=== PATIENT | female | born 1955 | race Caucasian/White ===

== ENCOUNTER 2020-07-11 15:07 | Emergency (ER) | payer OTHER ==
[~2020-07-11] VITALS: Ht 170.2 cm; Wt 76.2 kg
[2020-07-11 15:49] VITALS: BP 152/98
--- NOTE | 2020-07-11 16:29 | NUR ---
XRAY AT BEDSIDE
[2020-07-11] MEDS ORDERED: IBUP-1955 PO (17:56)
--- NOTE | 2020-07-11 18:15 | NUR ---
Patient discharged to home in stable condition. Written and verbal after care instructions given. Patient verbalizes understanding of instruction. Pt ambulatory with a steady gait
== END 2020-07-11 18:16 | disposition home or self-care (01) ==
LOC: ER 15:07
DX: S92.534A Nondisplaced fracture of distal phalanx of right lesser toe(s), initial encounter for closed fracture (principal); I10 Essential (primary) hypertension; Z98.890 Other specified postprocedural states; Y08.89XA Assault by other specified means, initial encounter; Y93.89 Activity, other specified; Y92.89 Other specified places as the place of occurrence of the external cause; Y99.8 Other external cause status
CPT/HCPCS: 73630-TC

== ENCOUNTER 2021-11-20 07:19 | Outpatient (CLI) | payer MEDICARE, OTHER ==
[~2021-11-20 07:19] MED LIST: IBUP-1955 PO
== END 2021-11-20 23:59 | disposition home or self-care (01) ==
LOC: LAB 07:19
PROVIDERS: ATTEND Orthopaedic Surgery
DX: Z01.812 Encounter for preprocedural laboratory examination (principal); Z20.822 Contact with and (suspected) exposure to COVID-19
CPT/HCPCS: U0003; C9803

== ENCOUNTER 2021-11-27 05:53 | Inpatient (IN) | payer OTHER, MEDICARE ==
[2021-11-27] VITALS (11 sets, daily range): BP systolic 95–152; BP diastolic 57–87
--- NOTE | 2021-11-27 06:54 | NUR ---
RN NOTE PT ARRIVED AT 0610 AM, AMBULATORY. A/O X 4, ABLE TO MAKE NEEDS KNOWN. ON ROOM AIR, WITH NO S/SX OF ACUTE RESPIRATORY DISTRESS NOTED UPON ASSESSMENT. NO SOB, NO PAIN PER PATIENT. SKIN IS INTACT. ALL SAFETY MEASURES IN PLACE: BED LOCKED IN LOW POSITION, BED ALARM ON. CALL LIGHT WITHIN REACH. INITIAL VS FOLLOW: TEMP 98.4 HR 108 RR 20 BP 142/87 O2 SAT 98%
[2021-11-27] MEDS ORDERED: ANESTHESIA TRAY IN PYXIS 1 EA TRAY MC ONE (06:55)
[2021-11-27] MEDS ORDERED: BUPIVACAINE 0.25% 75 MG/30 ML VIAL ONE (06:55)
--- NOTE | 2021-11-27 07:18 | NUR ---
RN OPENING NOTE PATIENT WAS PICKED UP BY OR NURSE AT 7:20AM
[2021-11-27] MEDS ORDERED: HYDROMORPHONE INJ 2 MG/ML DISP.SYRIN ONE ×2 (07:40→09:58)
[2021-11-27] MEDS ORDERED: MIDAZOLAM HCL 2 MG/2ML VIAL ONE (07:41)
[2021-11-27] MEDS ORDERED: ROCURONIUM BROMIDE 50 MG/5 ML ONE ×2 (07:41→09:07)
[2021-11-27] MEDS ORDERED: BUPIVACAINE 0.5 % PF 150 MG/30 ML VIAL ONE (07:41)
--- NOTE | 2021-11-27 12:55 | NUR ---
RN NOTES PT RETURNED TO UNIT VIA HER BED ACCOMPANIED BY O.RAzalia DOMINGUEZ S/P LEFT ANKLE REVISION AT NON- UNION REPAIR OF LATERAL MALLEOLUS BY DR DONG. PT IS AWAKE, A/O X4. NO C/O PAIN AT THIS TIME. DRESSING ON LEFT LOWER LEFT/FOOT C/D/I WRAPPED WITH RYANNE BANDAGE, PT ABLE TO MOVE ALL TOES. PT ON SIMPLE MASK AT THIS TIME, BREATHING EVEN AND UNLABORED, SP02 94-96% NOTED. IV ACCESS NOTED ON RIGHT HAND G#22 INTACT AND PATENT. PT'S DAUGHTER OCTAVIANO CALLED AND INFORMED HER THAT PT WILL BE D/C TOMORROW PER REPORT BY O.RAzalia RUIZ. ALL POST OP ORDERS RECEIVED AND WILL CARRY OUT. SAFETY MEASURES IN PLACE; BED IN LOWEST LOCKED POSITION, SR-UP X2 , CALL LIGHT AND TRAY TABLE PLACED W/I EASY REACH OF PT. WILL CONTINUE TO MONITOR PT'S STATUS.
--- NOTE | 2021-11-27 13:45 | NUR ---
RN NOTES NOTIFIED SAWMILL SUPERVISOR MAT CARL ABOUT PATIENT STAYING OVER NIGHT. NOTIFIED LIZ MEDICATION RECONCILIATION NURSE.
[2021-11-27] MEDS ORDERED: ONDANSETRON HCL/PF 4 MG/2 ML VIAL IVP PRN (14:00)
[2021-11-27] MEDS ORDERED: Z GUARD REMEDY 4 OZ OINT TP PRN (14:00)
[2021-11-27] MEDS ORDERED: MAG HYDROX/AL HYDROX/SIMETH 30 ML UDC PO PRN (14:00)
[2021-11-27] MEDS ORDERED: ACETAMINOPHEN 325 MG TABLET PO PRN (14:00)
[2021-11-27] MEDS ORDERED: ZOLPIDEM TARTRATE 5 MG TABLET PO PRN (14:00)
[2021-11-27] MEDS ORDERED: IBUPROFEN 600 MG TABLET PO PRN (14:00)
[2021-11-27] MEDS ORDERED: MAGNESIUM HYDROXIDE 30 ML UDC PO PRN (14:00)
[2021-11-27] MEDS ORDERED: ALPR2TAB7 PO (14:27)
[2021-11-27] MEDS ORDERED: LOSA50TA39 PO (14:27)
[2021-11-27] MEDS ORDERED: ALPRAZOLAM 1 MG TABLET PO PRN (15:00)
[2021-11-27] MEDS ORDERED: ONDANSETRON HCL/PF 8 MG in IV D5W 50 ML IVP PRN ×2 (15:00→15:30)
[2021-11-27] MEDS: IV NS 0.9% 1,000 ML IV PRN (15:10)
--- NOTE | 2021-11-27 16:25 | NUR ---
RN NOTES PT C/O ACHING TINGLING PAIN ON LEFT ANKLE/FOOT. PRN TYLENOL 650 MG PO ADMINISTERED AT 1624. WILL CONTINUE TO MONITOR PT
[2021-11-27] MEDS: HYDROCODONE/APAP 10/325MG TABLET PO PRN (18:31)
--- NOTE | 2021-11-27 18:31 | NUR ---
RN NOTES PT NOTED CRYING AND GRIMACING IN PAIN. VERBALIZED 10/10 SCALE OF PAIN ON LEFT FOOT/ANKLE. PRN NORCO 10/325 MG PO ADMINISTERED AT 1830. WILL CONTINUE TO MONITOR PT
--- NOTE | 2021-11-27 18:57 | NUR ---
RN CLOSING NOTE PATIENT AWAKE IN BED, ALERT/ORIENTED X4. PT ON FACE MASK, 8L OF O2, BREATHING EVEN AND UNLABORED, SP02 94-96% NOTED. PATIENT HAS DRESSING ON LEFT LOWER LEFT/FOOT C/D/I WRAPPED WITH RYANNE BANDAGE, PT ABLE TO MOVE ALL TOES. DRESSING IS DRY AND INTACT. IV ACCESS NOTED ON RIGHT HAND 22G INTACT AND PATENT. SAFETY MEASURES IN PLACE; BED IN LOWEST LOCKED POSITION, NON WEIGHT BEARING ON LEFT LEG. SIDE RAILS UP X2 , CALL LIGHT AND TRAY TABLE PLACED W/I EASY REACH OF PT. WILL CONTINUE TO MONITOR PT'S STATUS.
--- NOTE | 2021-11-27 19:15 | NUR ---
RN OPENING NOTE PATIENT AWAKE IN BED, ALERT/ORIENTED X4. ABLE TO MAKE NEEDS KNOWN. NO S/SX OF ACUTE DISTRESS NOTED. PATIENT ON FACE MASK, 8L OF O2, BREATHING EVEN AND UNLABORED, SP02 100% NOTED. PATIENT HAS DRESSING ON LEFT LOWER LEFT/FOOT C/D/I WRAPPED WITH RYANNE BANDAGE. IV ACCESS NOTED ON RIGHT HAND 22G INTACT AND PATENT. SAFETY MEASURES IN PLACE; BED IN LOWEST LOCKED POSITION, NON WEIGHT BEARING ON LEFT LEG. SIDE RAILS UP X2 , CALL LIGHT AND TRAY TABLE PLACED W/I EASY REACH. WILL CONTINUE TO MONITOR PATIENT THROUGHOUT THE SHIFT.
[2021-11-27] MEDS: HYDROMORPHONE INJ 2 MG/ML DISP.SYRIN IV PRN (21:37)
[2021-11-28] MEDS: HYDROCODONE/APAP 10/325MG TABLET PO PRN ×3 (00:49→15:36)
[2021-11-28] MEDS: HYDROMORPHONE INJ 2 MG/ML DISP.SYRIN IV PRN ×6 (03:53→23:14)
[2021-11-28] MEDS: IV NS 0.9% 1,000 ML IV PRN ×3 (04:02→19:53)
--- NOTE | 2021-11-28 06:13 | NUR ---
MS RN CLOSING NOTE PATIENT SLEEPING IN BED, AROUSED EASIILY. ABLE TO MAKE NEEDS KNOWN. NO S/SX OF ACUTE DISTRESS NOTED. PATIENT ON FACE MASK, 8L OF O2, BREATHING EVEN AND UNLABORED, SP02 98% NOTED. PATIENT HAS DRESSING ON LEFT LOWER LEFT/FOOT C/D/I WRAPPED WITH RYANNE BANDAGE. IV ACCESS NOTED ON RIGHT HAND 22G INTACT AND PATENT. SAFETY MEASURES IN PLACE; BED IN LOWEST LOCKED POSITION, NON WEIGHT BEARING ON LEFT LEG. SIDE RAILS UP X2 , CALL LIGHT AND TRAY TABLE PLACED W/I EASY REACH. WILL ENDORSE TO DAY SHIFT FOR CONTINUITY OF CARE.
[2021-11-28 06:55] LABS: BASOPHILS % (AUTO) 0.1 % (0.0-2.0); HEMATOCRIT 32 % (33-45); LYMPHOCYTES # (AUTO) 2.3 K/uL (0.8-4.8); LYMPHOCYTES % (AUTO) 17.7 % (20.0-44.0); MEAN CORPUSCULAR HGB CONC 32 g/dl (31.0-36.0); MEAN CORPUSCULAR VOLUME 82 fL (82-100); MONOCYTES # (AUTO) 1.3 K/uL (0.1-1.30); MONOCYTES % (AUTO) 9.9 % (2.0-12.0); NEUTROPHILS # (AUTO) 9.3 K/uL (1.8-8.9); NEUTROPHILS % (AUTO) 72.3 % (43.0-81.0); PLATELET COUNT (AUTO) 289 K/uL (150-450); RED BLOOD CELL COUNT(AUTO) 3.86 MIL/uL (4.0-5.2); WHITE BLOOD COUNT (AUTO) 12.9 K/uL (4.3-11.0)
[2021-11-28 07:17] LABS: CALCIUM, SERUM 8.3 mg/dL (8.5-10.1); CREATININE 0.7 mg/dL (0.6-1.3); POTASSIUM 4.1 mmol/L (3.5-5.1)
--- NOTE | 2021-11-28 07:45 | NUR ---
RN OPENING NOTE RECEIVED PATIENT AWAKE IN BED, ALERT/ORIENTED X4. ABLE TO MAKE NEEDS KNOWN. NO S/SX OF ACUTE DISTRESS NOTED. PATIENT IS RECEIVING 8L OF OXYGEN VIA FACE MASK BUT WHEN ASKED FOR THE REASON WHEN HER BREATHING EVEN AND UNLABORED WITHOUT IT, SHE SAID IT MAKES HER FEEL BETTER. SP02 IS 94%. PATIENT HAS DRESSING ON LEFT LOWER LEFT/FOOT C/D/I WRAPPED WITH RYANNE BANDAGE. IV ACCESS NOTED ON RIGHT HAND 22G INTACT AND PATENT, RUNNING NS @75 ML/HR. SAFETY MEASURES IN PLACE; BED IN LOWEST LOCKED POSITION, NON WEIGHT BEARING ON LEFT LEG. SIDE RAILS UP X2 , CALL LIGHT AND TRAY TABLE PLACED W/I EASY REACH. WILL CONTINUE TO MONITOR PATIENT.
[2021-11-28 08:00] VITALS: BP 129/78
[2021-11-28] MEDS: ASPIRIN 325 MG TABLET PO SCH ×3 (09:00→10:14)
[2021-11-28] MEDS: LOSARTAN POTASSIUM 50 MG TABLET PO SCH (09:16)
--- NOTE | 2021-11-28 09:35 | NUR ---
RN NOTES PT AT BEDSIDE.
[2021-11-28] MEDS: PANTOPRAZOLE 40 MG TABLET.DR PO SCH (15:37)
[2021-11-28 16:00] VITALS: BP 120/75
--- NOTE | 2021-11-28 16:23 | NUR ---
RN OPENING NOTE RECEIVED PATIENT AWAKE IN BED, ALERT/ORIENTED X4. ABLE TO MAKE NEEDS KNOWN. NO S/SX OF ACUTE DISTRESS NOTED. PATIENT IS RECEIVING 8L OF OXYGEN VIA FACE MASK BUT WHEN ASKED FOR THE REASON WHEN HER BREATHING EVEN AND UNLABORED WITHOUT IT, SHE SAID IT MAKES HER FEEL BETTER. SP02 IS 94%. PATIENT HAS DRESSING ON LEFT LOWER LEFT/FOOT C/D/I WRAPPED WITH RYANNE BANDAGE. IV ACCESS NOTED ON RIGHT HAND 22G INTACT AND PATENT, RUNNING NS @75 ML/HR. SAFETY MEASURES IN PLACE; BED IN LOWEST LOCKED POSITION, NON WEIGHT BEARING ON LEFT LEG. SIDE RAILS UP X2 , CALL LIGHT AND TRAY TABLE PLACED W/I EASY REACH. WILL CONTINUE TO MONITOR PATIENT. Addendum: 11/28/21 at 1627 by ISABEL HERNANDEZ RN DUPLICATE ENTRY
--- NOTE | 2021-11-28 16:27 | NUR ---
RN NOTES - PATIENT REFUSED ASPIRIN SHE HAS GASTRIC ULCERS SHE SAID. INFORMED ANASTASIA REIS.
--- NOTE | 2021-11-28 18:00 | NUR ---
RN NOTES - IV ACCESS INFILTRATED UNABLE TO ADMINISTER DILAUDID 1 MG VIA IV PATIENT'S IV IS INFILTRATED, MEDICATION HAS BEEN PULLED OUT ALREADY, WASTED MEDICATION WITNESSED BY CHARGE NURSE LILY. PATIENT IS HARD STICK AND DOESN'T HAVE AN IV ACCESS AT THE MOMENT.
--- NOTE | 2021-11-28 18:45 | NUR ---
RN CLOSING NOTE RECEIVED PATIENT AWAKE IN BED, ALERT/ORIENTED X4. ABLE TO MAKE NEEDS KNOWN. NO S/SX OF ACUTE DISTRESS NOTED. PATIENT IS ON ROOM AIR AND TOLERATING WELL AT 96%, STANDBY OXYGEN IS JUST THERE FOR "COMFORT" PER PATIENT, ALTHOUGH NO SOB IS NOTED AT ALL. POST OP SITE STILL WITH SPLINT AND WITH DRESSING ON LEFT LOWER LEFT/FOOT C/D/I WRAPPED WITH RYANNE BANDAGE. NEW IV ACCESS NOTED ON RIGHT UPPER ARM 20G INTACT AND PATENT, RUNNING NS @75 ML/HR. SAFETY MEASURES MAINTAINED: BED IN LOWEST LOCKED POSITION, NON WEIGHT BEARING ON LEFT LEG. SIDE RAILS UP X2 , CALL LIGHT AND TRAY TABLE PLACED W/I EASY REACH. ENDORSED TO THE STRIP MILL OPERATOR NURSE.
[2021-11-28 20:00] VITALS: BP 116/58
--- NOTE | 2021-11-28 21:32 | NUR ---
WASTED NORCO Patient c/o right leg eisenberg 10/04. Tablet [place] medication packet opened and to give to patient. Patient changed her mind and stated she will wait for IV Dilaudid. Indication and possible side effect of [place] discussed with patient, verbalized understanding. As [place] tablet packet was opened, whole 1 tablet medication wasted, placed in Rx Destroyer container in medication room, witnessed with JADIEL Lewis.
--- NOTE | 2021-11-28 23:14 | NUR ---
RLE PAIN Patient in bed sitting upright, c/o right leg pain 10/04. Able to move toes. Given PRN IV Dilaudid, will reassess pain level. Addendum: 11/29/21 at 0344 by OLIVERIO ROACH RN CLARIFICATION NOTES ABOVE: LLE Pain
[2021-11-29] MEDS: HYDROMORPHONE INJ 2 MG/ML DISP.SYRIN IV PRN ×2 (03:40→08:08)
--- NOTE | 2021-11-29 03:43 | NUR ---
LLE PAIN Patient in bed sitting upright, c/o Left leg pain 8/10. Able to move toes. Given PRN IV Dilaudid, will reassess pain level.
--- NOTE | 2021-11-29 06:28 | NUR ---
END OF SHIFT REPORT Patient in bed, Alert Oriented x4. IV JESUS intact, IVF infusing. Afebrile throughout shift. Left leg pain improved with IV Dilaudid. Patient able to transfer to [facility] with NWB LLE, observed no SOB with exertion. Patient on Oxygen mask On and Off per her request to use, Oxygen sat 98% on RA. Encouraged ambulation, PT following. Fall precaution maintained. Will endorse to oncoming RN.
--- NOTE | 2021-11-29 07:20 | NUR ---
RN NOTES RECEIVED PATIENT IN AWAKE, A/O X4, VERBALLY RESPONSIVE. NO SIGNS OF ACUTE DISTRESS NOTED. DENIES ANY PAIN AT THIS TIME. ON ROOM AIR, NO SOB NOTED, BREATHING EVEN AND UNLABORED. NOTED WITH IV ACCESS ON RIGHT UPPER ARM #20G, INTACT AND PATENT WITH NS @ 75 ML/HR RUNNING. LEFT LOWER EXTREMITY NOTED WITH DRESSING C/D/I. SAFETY MEASURE IN PLACE. BED IN LOWEST AND LOCKED POSITION. SIDE RAILS UP X2, CALL LIGHT AND TABLE PLACED WITHIN EASY REACH. WILL CONTINUE TO MONITOR PATIENT.
--- NOTE | 2021-11-29 07:20 | NUR ---
INFORMED PHARMACY, RE: NORCO WASTED Called pharmacy, spoke with Claudia/Pharmacy. Informed Rodolfo Taylor medication whole 1 Tablet wasted/discarded and placed in Rx Destroyer container inside [facility] medication room, witnessed with JADIEL Lewis. [facility] no option to waste 1 Tablet [place] as RN Debbie unable to enter her employee ID and co-sign.
[2021-11-29 07:29] LABS: CALCIUM, SERUM 8.8 mg/dL (8.5-10.1); CREATININE 0.6 mg/dL (0.6-1.3); PHOSPHORUS 3.1 mg/dL (2.5-4.9); POTASSIUM 3.9 mmol/L (3.5-5.1)
[2021-11-29 07:33] LABS: BASOPHILS # (AUTO) 0.1 K/uL (0.0-0.2); EOSINOPHILS % (AUTO) 0.2 % (0.0-6.0); HEMATOCRIT 38 % (33-45); HEMOGLOBIN 11.6 g/dL (11.5-14.8); LYMPHOCYTES # (AUTO) 2.1 K/uL (0.8-4.8); LYMPHOCYTES % (AUTO) 21.9 % (20.0-44.0); MEAN CORPUSCULAR HGB CONC 31 g/dl (31.0-36.0); MEAN CORPUSCULAR VOLUME 84 fL (82-100); MONOCYTES # (AUTO) 0.5 K/uL (0.1-1.30); MONOCYTES % (AUTO) 5.2 % (2.0-12.0); NEUTROPHILS % (AUTO) 71.7 % (43.0-81.0); PLATELET COUNT (AUTO) 299 K/uL (150-450); WHITE BLOOD COUNT (AUTO) 9.8 K/uL (4.3-11.0)
[2021-11-29 08:00] VITALS: BP 142/78
[2021-11-29] MEDS: PANTOPRAZOLE 40 MG TABLET.DR PO SCH (08:08)
[2021-11-29] MEDS: LOSARTAN POTASSIUM 50 MG TABLET PO SCH (08:14)
[2021-11-29] MEDS: IV NS 0.9% 1,000 ML IV PRN (10:58)
[2021-11-29] MEDS: HYDROCODONE/APAP 10/325MG TABLET PO PRN ×3 (12:39→22:28)
[2021-11-29 16:00] VITALS: BP 133/63
--- NOTE | 2021-11-29 18:42 | NUR ---
RN CLOSING NOTE PATIENT IN BED AWAKE, A/O X4, VERBALLY RESPONSIVE. NO SIGNS OF ACUTE DISTRESS NOTED. DENIES ANY PAIN AT THIS TIME. REMAINS STABLE ON ROOM AIR, NO SOB NOTED, BREATHING EVEN AND UNLABORED. IV ACCESS ON LEFT HAND #22G, INTACT AND PATENT WITH NS @ 75 ML/HR RUNNING. LEFT LOWER EXTREMITY NOTED WITH SPLINT WITH DRESSING C/D/I. PATIENT PARTICIPATED WITH PT ABLE TO HOP/ADVANCE RLE USING FWW WITH CUEING ON PROPER TURNING ON THE RIGHT SIDE, 10 FT X2. SAFETY MEASURE MAINTAINED. BED IN LOWEST AND LOCKED POSITION. SIDE RAILS UP X2, CALL LIGHT AND TABLE PLACED WITHIN EASY REACH. WILL ENDORSE TO NEXT SHIFT FOR MARJORIE.
--- NOTE | 2021-11-29 19:30 | NUR ---
MS RN OPENING NOTE RECEIVED PATIENT AWAKE IN BED, ALERT/ORIENTED X4. ABLE TO MAKE NEEDS KNOWN. NO S/SX OF ACUTE DISTRESS NOTED. PATIENT IS ON ROOM AIR, TOLERATING ROOM AIR WELL. PATIENT HAS DRESSING ON LEFT LOWER FOOT C/D/I WRAPPED WITH RYANNE BANDAGE. IV ACCESS NOTED ON LEFT WRIST 22G INTACT AND PATENT, RUNNING NS @75 ML/HR. SAFETY MEASURES IN PLACE; BED IN LOWEST LOCKED POSITION, NON WEIGHT BEARING ON LEFT LEG. SIDE RAILS UP X2 , CALL LIGHT AND TRAY TABLE PLACED W/I EASY REACH. WILL CONTINUE TO MONITOR PATIENT.
[2021-11-29 20:00] VITALS: BP 132/88
--- NOTE | 2021-11-29 23:00 | NUR ---
MS RN NOTE PT REMOVED HER IV ACCESS. SHE STATED THAT IT HAD BEEN HURTING HER, AND SHE REFUSED TO KEEP IT ON. PT REFUSED TO HAVE NEW IV ACCESS INSERTED.CHARGE NURSE MADE AWARE.
--- NOTE | 2021-11-30 07:30 | NUR ---
RN Receiving Report. PT AOx4, able to express her own concerns. patients conversation is confusing she jumps from one subject to another. Patient shows no signs of distress or discomfort but seems agitated with her current hospital situation. Discussed plan of care and plan of care with patient and he verbalized agreement. Patient advised to follow instructions given by physical therapy and to use call light when she needs assistance. All safety precautions taken with patient, call light and table within reach, bed at lowest position. Will continue to monitor throughout shift and provide care as needed.
--- NOTE | 2021-11-30 07:33 | NUR ---
MS RN CLOSING NOTE LEFT PATIENT RESTING IN BED. PT A/O X4, VERBALLY RESPONSIVE. NO SIGNS OF ACUTE DISTRESS NOTED. DENIES ANY PAIN AT THIS TIME. REMAINS STABLE ON ROOM AIR, NO SOB NOTED, BREATHING EVEN AND UNLABORED. PT HAS NO IV ACCESS AT THIS TIME. DECLINES IV INSERTION. LEFT LOWER EXTREMITY NOTED WITH SPLINT WITH DRESSING C/D/I. SAFETY MEASURE MAINTAINED. BED IN LOWEST AND LOCKED POSITION. SIDE RAILS UP X2, CALL LIGHT AND TABLE PLACED WITHIN EASY REACH. WILL ENDORSE TO NEXT SHIFT FOR MARJORIE.
[2021-11-30] MEDS: HYDROCODONE/APAP 10/325MG TABLET PO PRN (08:15)
[2021-11-30] MEDS: PANTOPRAZOLE 40 MG TABLET.DR PO SCH (08:15)
[2021-11-30] MEDS: LOSARTAN POTASSIUM 50 MG TABLET PO SCH (08:15)
[2021-11-30 08:39] VITALS: BP 169/86
[2021-11-30 16:07] VITALS: BP 174/102
--- NOTE | 2021-11-30 19:45 | NUR ---
RN Closing Report. PT able to express her concerns, AOx4. Patient remained stable throughout shift. No incidents, all safety precautions taken call light and table within reach. Care provided as needed, medications administered as prescribed. NO IV since patient refused.
[2021-11-30 20:00] VITALS: BP 184/101
[2021-11-30 21:00] VITALS: BP 163/92
[2021-12-01 06:26] LABS: BASOPHILS # (AUTO) 0.1 K/uL (0.0-0.2); BASOPHILS % (AUTO) 0.9 % (0.0-2.0); EOSINOPHILS % (AUTO) 0.7 % (0.0-6.0); HEMATOCRIT 36 % (33-45); LYMPHOCYTES # (AUTO) 1.8 K/uL (0.8-4.8); LYMPHOCYTES % (AUTO) 15.3 % (20.0-44.0); MEAN CORPUSCULAR HGB CONC 31 g/dl (31.0-36.0); MEAN CORPUSCULAR VOLUME 81 fL (82-100); MONOCYTES # (AUTO) 0.9 K/uL (0.1-1.30); MONOCYTES % (AUTO) 7.8 % (2.0-12.0); NEUTROPHILS # (AUTO) 8.7 K/uL (1.8-8.9); NEUTROPHILS % (AUTO) 75.3 % (43.0-81.0); PLATELET COUNT (AUTO) 314 K/uL (150-450); RED BLOOD CELL COUNT(AUTO) 4.39 MIL/uL (4.0-5.2); WHITE BLOOD COUNT (AUTO) 11.6 K/uL (4.3-11.0)
[2021-12-01 06:48] LABS: CALCIUM, SERUM 9.3 mg/dL (8.5-10.1); CREATININE 0.8 mg/dL (0.6-1.3); MAGNESIUM 1.9 mg/dL (1.8-2.4); PHOSPHORUS 3.4 mg/dL (2.5-4.9); POTASSIUM 3.1 mmol/L (3.5-5.1)
--- NOTE | 2021-12-01 07:15 | NUR ---
MS RN CLOSING NOTE LEFT PATIENT RESTING IN BED. PT A/O X4, VERBALLY RESPONSIVE. NO SIGNS OF ACUTE DISTRESS NOTED. DENIES ANY PAIN AT THIS TIME. REMAINS STABLE ON ROOM AIR, NO SOB NOTED, BREATHING EVEN AND UNLABORED. PT HAS NO IV ACCESS AT THIS TIME. LEFT LOWER EXTREMITY NOTED WITH SPLINT, AND DRESSING INTACT. SAFETY MEASURE IN PLACE. BED IN LOWEST AND LOCKED POSITION. SIDE RAILS UP X2, CALL LIGHT AND TABLE PLACED WITHIN EASY REACH. WILL ENDORSE TO NEXT SHIFT FOR MARJORIE.
--- NOTE | 2021-12-01 07:30 | NUR ---
MS RN OPENING NOTE RECEIVED PATIENT AWAKE ON BED, ALERT/ORIENTED X4. ABLE TO MAKE NEEDS KNOWN. ON ROOM AIR TOLERATING WELL. NO SOB NOTED. NOT IN DISTRESS. PATIENT HAS DRESSING ON LEFT LOWER FOOT C/D/I WRAPPED WITH RYANNE BANDAGE. WITH NO IV ACCESS IN PLACED. PATIENT REFUSED IV REINSERTION. SAFETY MEASURES IN PLACED; BED IN LOWEST LOCKED POSITION, NON WEIGHT BEARING ON LEFT LEG. SIDE RAILS UP X2 , CALL LIGHT AND TRAY TABLE PLACED W/I EASY REACH. WILL CONTINUE TO MONITOR PATIENT.
[2021-12-01] MEDS: PANTOPRAZOLE 40 MG TABLET.DR PO SCH (08:07)
[2021-12-01] MEDS: LOSARTAN POTASSIUM 50 MG TABLET PO SCH (08:07)
[2021-12-01 08:24] VITALS: BP 144/80
[2021-12-01] MEDS: POTASSIUM CHLORIDE 20 MEQ POWDER PACKET PO SCH ×2 (12:13→12:45)
[2021-12-01 16:13] VITALS: BP 150/96
[2021-12-01] MEDS: ENOXAPARIN SODIUM 40 MG/0.4 ML DISP.SYRIN SQ SCH (16:34)
--- NOTE | 2021-12-01 18:49 | NUR ---
MS RN CLOSING NOTES PATIENT AWAKE STANDING BY THE DOOR TALKING TO HERSELF, ALERT/ORIENTED X2-3. ABLE TO MAKE NEEDS KNOWN. ON ROOM AIR TOLERATING WELL. NO SOB NOTED. NOT IN DISTRESS. PATIENT HAS DRESSING ON LEFT LOWER FOOT C/D/I WRAPPED WITH RYANNE BANDAGE. WITH NO IV ACCESS IN PLACED. PATIENT REFUSED IV REINSERTION. DUE MEDS GIVEN. SAFETY MEASURES IN PLACED; BED IN LOWEST LOCKED POSITION, NON WEIGHT BEARING ON LEFT LEG. SIDE RAILS UP X2 , CALL LIGHT AND TRAY TABLE PLACED W/I EASY REACH. WILL ENDORSE TO NEXT SHIFT FOR MARJORIE.
--- NOTE | 2021-12-01 19:40 | NUR ---
MS RN NOTES RECEIVED SITTING ON EDGE OF BED,A/O 3,TALKING TO SELF,S/P LEFT ANKLE REVISION,DRESSING INTACT AND DRY.NWB ON LEFT FOOT BUT PATIENT KEPT ON WALKING,NON COMPLIANT WITH CARE,INSTRUCTIONS.LABILE,TALKING ABOUT PEOPLE IN HER APARTMENT,MORE ON W[place] SALAD,REQUESTED BY DAY NURSE TO DR REIS FOR PSYCHE CONSULT,AWAITING FOR ORDERS.WILL CONTINUE TO MONITOR BEHAVIOR,CALL LIGHT IN REACH,NEEDS ANTICIPATED.
[2021-12-01 20:00] VITALS: BP 139/99
--- NOTE | 2021-12-02 06:26 | NUR ---
MS RN NOTES CALM THRU OUT SHIFT,STAYED IN THE ROOM,FOLLOW DIRECTIONS,NO COMPLAINTS OF PAIN.WILL FOLLOW THIS MORNING FOR PSYCHE [id number] AND TALKING TO SELF) IN NO ACUTE DISTRESS.
[2021-12-02 06:43] LABS: BASOPHILS # (AUTO) 0.1 K/uL (0.0-0.2); BASOPHILS % (AUTO) 0.8 % (0.0-2.0); EOSINOPHILS % (AUTO) 0.6 % (0.0-6.0); HEMATOCRIT 35 % (33-45); HEMOGLOBIN 10.9 g/dL (11.5-14.8); LYMPHOCYTES % (AUTO) 18.2 % (20.0-44.0); MEAN CORPUSCULAR HGB CONC 32 g/dl (31.0-36.0); MEAN CORPUSCULAR VOLUME 82 fL (82-100); MONOCYTES # (AUTO) 0.9 K/uL (0.1-1.30); NEUTROPHILS # (AUTO) 8.1 K/uL (1.8-8.9); NEUTROPHILS % (AUTO) 72.4 % (43.0-81.0); PLATELET COUNT (AUTO) 335 K/uL (150-450); RED BLOOD CELL COUNT(AUTO) 4.26 MIL/uL (4.0-5.2); WHITE BLOOD COUNT (AUTO) 11.2 K/uL (4.3-11.0)
[2021-12-02 06:59] LABS: CALCIUM, SERUM 9.4 mg/dL (8.5-10.1); CREATININE 0.8 mg/dL (0.6-1.3); PHOSPHORUS 3.9 mg/dL (2.5-4.9); POTASSIUM 3.6 mmol/L (3.5-5.1)
[2021-12-02] MEDS: PANTOPRAZOLE 40 MG TABLET.DR PO SCH (07:30)
[2021-12-02 08:00] VITALS: BP 155/92
[2021-12-02] MEDS: LOSARTAN POTASSIUM 50 MG TABLET PO SCH (08:48)
--- NOTE | 2021-12-02 09:00 | NUR ---
RN OPENING NOTES PATIENT SITTING ON BED COMFORTABLY, ALERT AND ORIENTED. NO S/S OF DISTRESS. MORNING MEDS GIVEN, PATIENT WAS COOPERATIVE AND IN GOOD MOOD. WILL MONITOR.
[2021-12-02 15:45] VITALS: BP 149/93
[2021-12-02] MEDS ORDERED: ANESTHESIA TRAY IN PYXIS 1 EA TRAY MC ONE (16:12)
[2021-12-02] MEDS: ENOXAPARIN SODIUM 40 MG/0.4 ML DISP.SYRIN SQ SCH (16:58)
--- NOTE | 2021-12-02 18:45 | NUR ---
RN Closing Report. PT able to express her concerns, AOx4. Patient remained stable throughout shift. At times, patient was caught talking to herself, therapeutic conversation rendered. Patient scheduled for EGD on Saturday, consent signed. No incidents, all safety precautions taken call light and table within reach. Care provided as needed, medications administered as prescribed. NO IV since patient refused. Endorsed to incoming NOD.
--- NOTE | 2021-12-02 19:45 | NUR ---
MS RN NOTES RECEIVED SITTING ON BED,/AO X4,ABLE TO VERBALIZED NEEDS,CALM THIS TIME,LEFT LEG CAST WITH DRESSING INTACT AND DRY.NWB ON LEFT FOOT,PATIENT AWARE BUT NON COMPLIANT WITH IT.INSTRUCTED NPO POST MIDNIGHT GOING FOR EGD TOMORROW,WILL PUT NEW SALINE LOCK.PER REPORT,SHE WAS EVALUATED FOR PSYCHE EVAL AND SHE'S NOT CANDIDATE FOR PSYCHE UNIT PLACEMENT.WILL CONTINUE TO MONITOR.
[2021-12-02 20:00] VITALS: BP 138/90
--- NOTE | 2021-12-02 20:30 | NUR ---
MS RN NOTES OFFERED TO NEW SALINE LOCK BUT SHE REQUESTED TO HAVE A SHOWER FIRST.LEFT LEG WAS COVERED WITH PLASTIC BAG,PUT TO SHOWER WITH MUSIC SOUND LIGHT TECHNICIAN ON STANDBY WHILE PATIENT SHOWERING.
--- NOTE | 2021-12-02 22:50 | NUR ---
MS RN NOTES SHOWERED DONE,KEPT HER BODY DRY,PUT ON NEW PATIENT GOWN AND ACCOMPANY HER BACK TO HER ROOM.OFFER TO PUT NEW SALINE LOCKAND SHE WANTS IT IN THE MORNING.
--- NOTE | 2021-12-03 05:04 | NUR ---
MS RN NOTES NEW SALINE LOCK PLACE ON RIGHT WRIST #22.
[2021-12-03 07:03] LABS: BASOPHILS # (AUTO) 0.1 K/uL (0.0-0.2); BASOPHILS % (AUTO) 0.8 % (0.0-2.0); EOSINOPHILS % (AUTO) 0.6 % (0.0-6.0); HEMATOCRIT 35 % (33-45); HEMOGLOBIN 10.9 g/dL (11.5-14.8); LYMPHOCYTES # (AUTO) 1.8 K/uL (0.8-4.8); LYMPHOCYTES % (AUTO) 15.4 % (20.0-44.0); MEAN CORPUSCULAR HGB CONC 31 g/dl (31.0-36.0); MEAN CORPUSCULAR VOLUME 82 fL (82-100); MONOCYTES # (AUTO) 1.1 K/uL (0.1-1.30); MONOCYTES % (AUTO) 9.6 % (2.0-12.0); NEUTROPHILS # (AUTO) 8.7 K/uL (1.8-8.9); NEUTROPHILS % (AUTO) 73.6 % (43.0-81.0); PLATELET COUNT (AUTO) 320 K/uL (150-450); RED BLOOD CELL COUNT(AUTO) 4.34 MIL/uL (4.0-5.2); WHITE BLOOD COUNT (AUTO) 11.8 K/uL (4.3-11.0)
--- NOTE | 2021-12-03 07:13 | NUR ---
MS RN NOTES KEPT NPO POST MIDNIGHT,GOING FOR EGD THIS AT 11AM THIS MORNING,SALINE LOCK PLACE ON RIGHT AC #22.CALM AND QUIET THRU OUT SHIFT,REDIRECTABLE,CALL LIGHT IN REACH,NEEDS ATTENDED.
[2021-12-03 07:22] LABS: CALCIUM, SERUM 9.4 mg/dL (8.5-10.1); CREATININE 0.8 mg/dL (0.6-1.3); MAGNESIUM 2.2 mg/dL (1.8-2.4); POTASSIUM 3.5 mmol/L (3.5-5.1)
[2021-12-03] MEDS: PANTOPRAZOLE 40 MG TABLET.DR PO SCH (07:47)
--- NOTE | 2021-12-03 07:55 | NUR ---
RN OPENING NOTE- PATIENT ASLEEP IN BED, EASILY AWAKENED, ALERT/ORIENTED X4. ABLE TO MAKE NEEDS KNOWN. ON ROOM AIR TOLERATING WELL. NO SOB NOTED. NOT IN DISTRESS. PATIENT HAS DRESSING ON LEFT LOWER FOOT C/D/I WRAPPED WITH RYANNE BANDAGE. WITH NO IV ACCESS. PATIENT REFUSED IV . SAFETY MEASURES IN PLACED; BED IN LOWEST LOCKED POSITION, NON WEIGHT BEARING ON LEFT LEG. SIDE RAILS UP X2 , CALL LIGHT IN REACH. MONITOR / ASSIST
[2021-12-03 08:00] VITALS: BP 137/93
[2021-12-03 09:00] VITALS: BP 132/88
[2021-12-03] MEDS: LOSARTAN POTASSIUM 50 MG TABLET PO SCH (09:00)
[2021-12-03] MEDS ORDERED: HYDR-3980 PO (12:45)
[2021-12-03] MEDS ORDERED: PANT40TA49 PO (12:45)
[2021-12-03] MEDS ORDERED: ENOX40DI SQ (12:45)
[2021-12-03] MEDS: ENOXAPARIN SODIUM 40 MG/0.4 ML DISP.SYRIN SQ SCH (16:26)
--- NOTE | 2021-12-03 16:27 | NUR ---
RN NOTE- PT DC AT THIS TIME TO [facility]. REPORT CALLED TO [facility]. ORDERS REVIEWED AND UNDERSTOOD. F/U W DR LOMELI IN 10 DAYS. DRESSING TO LFT ANKLE DRY INTACT. ID [id number] REMOVED, HEPLOCK REMOVED. ESCORTED OFF UNIT BY AMBULANCE STAFF.
== END 2021-12-03 16:27 | DRG 313 ==
LOC: DS 05:53 → MED 05:54
PROVIDERS: ADMIT Nurse Practitioner Acute Care; ATTEND Student in an Organized Health Care Education/Training Program
PROC: 0QHK04Z Insertion of Internal Fixation Device into Left Fibula, Open Approach (ICD-10-PCS; principal; 2021-11-30)
PROC: 0QUK07Z Supplement Left Fibula with Autologous Tissue Substitute, Open Approach (ICD-10-PCS; 2021-11-30)
PROC: 0QBM0ZZ Excision of Left Tarsal, Open Approach (ICD-10-PCS; 2021-11-30)
PROC: 0QPK04Z Removal of Internal Fixation Device from Left Fibula, Open Approach (ICD-10-PCS; 2021-11-30)
PROC: 0QPH04Z Removal of Internal Fixation Device from Left Tibia, Open Approach (ICD-10-PCS; 2021-11-30)
PROC: 0DB68ZX Excision of Stomach, Via Natural or Artificial Opening Endoscopic, Diagnostic (ICD-10-PCS; 2021-12-03)
DX: T84.84XA Pain due to internal orthopedic prosthetic devices, implants and grafts, initial encounter (principal); D64.9 Anemia, unspecified; E11.9 Type 2 diabetes mellitus without complications; E66.9 Obesity, unspecified; E78.5 Hyperlipidemia, unspecified; Z87.11 Personal history of peptic ulcer disease; F41.9 Anxiety disorder, unspecified; I10 Essential (primary) hypertension; Z20.822 Contact with and (suspected) exposure to COVID-19; Z87.19 Personal history of other diseases of the digestive system; Z79.899 Other long term (current) drug therapy; Y83.8 Other surgical procedures as the cause of abnormal reaction of the patient, or of later complication, without mention of misadventure at the time of the procedure; M96.0 Pseudarthrosis after fusion or arthrodesis; V89.2XXS Person injured in unspecified motor-vehicle accident, traffic, sequela; Z98.890 Other specified postprocedural states; Z88.0 Allergy status to penicillin; Z88.5 Allergy status to narcotic agent; K25.9 Gastric ulcer, unspecified as acute or chronic, without hemorrhage or perforation; K29.70 Gastritis, unspecified, without bleeding; Q40.3 Congenital malformation of stomach, unspecified; Z83.3 Family history of diabetes mellitus; Y92.129 Unspecified place in nursing home as the place of occurrence of the external cause; S82.62XK Displaced fracture of lateral malleolus of left fibula, subsequent encounter for closed fracture with nonunion; V89.2XXD Person injured in unspecified motor-vehicle accident, traffic, subsequent encounter
CPT/HCPCS: 36415; 73600-TC; 80048-TC; 82962-TC; 83735-TC; 84100-TC; 85025-TC; 86850-TC; 87081-TC; 88305-TC; 88313-TC; 88342; 94799-TC; 97110-TC; 97112-TC; 97116-TC; 97530-TC; A4217; A6402; C1713; C1769; G0378; J0330; J0690; J1100; J1170; J1650; J1885; J2250; J2405; J2704; J3490; J7030; J7060